=== PATIENT | male | born 1945 | race Caucasian/White ===

== ENCOUNTER 2018-04-19 19:42 | Emergency (ER) | payer MEDICARE ==
[~2018-04-19] VITALS: Ht 185.4 cm; Wt 90.0 kg
[2018-04-19 20:42] LABS: MICROSCOPIC INDICATED
[2018-04-19 20:44] LABS: CULTURE INDICATED? NO
[2018-04-19 21:14] VITALS: BP 155/81
== END 2018-04-19 21:16 | disposition home or self-care (01) ==
LOC: ED 20:45
DX: R33.9 Retention of urine, unspecified (principal); E11.9 Type 2 diabetes mellitus without complications; I10 Essential (primary) hypertension; I25.2 Old myocardial infarction
CPT/HCPCS: 51702; 81001; 99284